=== PATIENT | male | born 1955 | race Caucasian/White ===

== ENCOUNTER 2017-02-28 09:38 | Emergency (ER) | payer OTHER ==
[~2017-02-28] VITALS: Ht 165.1 cm; Wt 99.8 kg
[~2017-02-28 09:38] MED LIST: AMBIEN10 MG PO; COLACE100 MG PO; CYTOTEC100 MCG PO; ESCITALOPRAM10 MG PO; GABAPENTIN300 MG PO; IBUPROFEN400 MG PO; KETOPROFEN50 MG PO; LIO10 PO; LORAZEPAM1 PO; NEURONTIN100 MG PO; NIT0.4 SL; OXYC PO; OXYCODONE HCL15 MG PO; PROMETHAZINE PO; RANITIDINE HCL PO; ROBAXIN500 MG PO; ROXICODONE5 MG PO; SENOKOT NATURA8.6 M1 PO; SEROQUEL PO; SEROQUEL25 MG; SEROQUEL25 MG PO; SIMVASTATIN40 MG PO; SING10 PO; TRAZODONE100 M1 PO; XANAX0.25 MG PO; ZANTAC 150150 MG PO; ZETIA10 MG PO; [UNRECOGNIZED DRUG - CODE] PO; [UNRECOGNIZED DRUG - OTHER] PO
[2017-02-28 09:42] VITALS: Ht 165.1 cm; Wt 99.8 kg
[2017-02-28 11:30] VITALS: BP 138/80
== END 2017-02-28 12:31 | disposition home or self-care (01) ==
LOC: ED 09:38
DX: S50.02XA Contusion of left elbow, initial encounter (principal); S50.01XA Contusion of right elbow, initial encounter; M54.5 Low back pain; M54.2 Cervicalgia; G89.29 Other chronic pain; I10 Essential (primary) hypertension; J45.909 Unspecified asthma, uncomplicated; Z88.8 Allergy status to other drugs, medicaments and biological substances; W05.0XXA Fall from non-moving wheelchair, initial encounter; Y93.89 Activity, other specified; Y92.89 Other specified places as the place of occurrence of the external cause; Y99.8 Other external cause status

== ENCOUNTER 2019-12-28 12:40 | Emergency (ER) | payer OTHER ==
[~2019-12-28] VITALS: Ht 177.8 cm; Wt 122.5 kg
[2019-12-28 12:49] VITALS: BP 149/85; Ht 177.8 cm; Wt 122.5 kg
== END 2019-12-28 13:40 | disposition home or self-care (01) ==
LOC: ED 12:40
DX: M54.5 Low back pain (principal); G89.29 Other chronic pain; J45.909 Unspecified asthma, uncomplicated; I11.0 Hypertensive heart disease with heart failure; I50.9 Heart failure, unspecified; Z89.021 Acquired absence of right finger(s); Z88.8 Allergy status to other drugs, medicaments and biological substances; W06.XXXA Fall from bed, initial encounter; Y93.89 Activity, other specified; Y92.89 Other specified places as the place of occurrence of the external cause; Y99.8 Other external cause status
CPT/HCPCS: J1885